=== PATIENT | female | born 1995 | race Caucasian/White ===

== ENCOUNTER 2016-04-29 09:14 | Emergency (ER) | payer OTHER ==
[2016-04-29] MEDS ORDERED: Ibuprofen TAB* 400 MG PO ONE (10:23)
--- NOTE | 2016-04-29 10:29 | UC ---
Throat Pain/Nasal Mohan HPI - HPI Summary HPI Summary: complaint of having fever and chills for the last 36-48 hours last night fever increased vomited 1x last night with phlegm, denies diarrhea feels achy in entire body intermittent headache taking ibuporofen with minimal relief last dose yesterday 5PM no difficulty drinking fluids - History of Current Complaint Chief Complaint: UCGeneralIllness Stated Complaint: CHILLS,ACHY,STOMACH Time Seen by Provider: 04/29/16 10:15 Hx Obtained From: Patient Hx Last Menstrual Period: 04/17/16 - Allergies/Home Medications Allergies/Adverse Reactions: Allergies Allergy/AdvReac Type Severity Reaction Status Date / Time seasonal Allergy Congestion Uncoded 04/29/16 10:13 Home Medications: Home Medications Ibuprofen TAB* [Advil TAB*] 400 mg PO Q8H PRN 04/29/16 [History Confirmed ] PMH/Surg Hx/FS Hx/Imm Hx Previously Healthy: Yes - Surgical History Surgical History: Yes Surgery Procedure, Year, and Place: cyst on forehead 2013, wisdom teeth 2013, right hip labrum repair 2010 - Family History Known Family History: Positive: Cardiac Disease, Hypertension - maternal grandmother with DM, HTN CAD, Diabetes - Social History Occupation: Student Alcohol Use: Occasionally Substance Use Type: None Smoking Status (MU): Never Smoked Tobacco Review of Systems Constitutional: Fever, Chills, Fatigue Skin: Negative Eyes: Negative ENT: Negative Respiratory: Cough Cardiovascular: Negative Gastrointestinal: Negative Genitourinary: Negative Motor: Negative Neurovascular: Negative Musculoskeletal: Negative Neurological: Negative Psychological: Negative All Other Systems Reviewed And Are Negative: Yes Physical Exam Triage Information Reviewed: Yes Appearance: Well-Nourished, Ill-Appearing Vital Signs: Initial Vital Signs Temp 101.6 F 04/29/16 10:06 Pulse 121 04/29/16 10:06 Resp 18 04/29/16 10:06 BP 111/62 04/29/16 10:06 Pulse Ox 98 04/29/16 10:06 Vital Signs Reviewed: Yes Eyes: Positive: Conjunctiva Clear ENT: Positive: Pharyngeal erythema, TMs normal. Negative: Nasal congestion, Tonsillar swelling, Tonsillar exudate Neck: Positive: No Lymphadenopathy Respiratory: Positive: Lungs clear, Normal breath sounds, No respiratory distress Cardiovascular: Positive: No Murmur, Pulses Normal, Tachycardia Abdomen Description: Positive: Nontender, No Organomegaly, Soft. Negative: CVA Tenderness (R), CVA Tenderness (L) Bowel Sounds: Positive: Present Musculoskeletal: Positive: No Edema Neurological: Positive: Alert Psychological Exam: Normal Skin Exam: Normal Throat Pain/Nasal Course/Dx - Course Course Of Treatment: exam completed. will start tamiflu for influenza- pt refuses influenza testing - Differential Dx/Diagnosis Differential Diagnosis/HQI/PQRI: Influenza, Otitis Media, Tonsillitis, URI Provider Diagnoses: viral syndrome Discharge - Discharge Plan Condition: Stable Disposition: HOME Prescriptions: Oseltamivir CAP* [Tamiflu CAP*] 75 mg PO BID #10 cap Patient Education Materials: Influenza (ED) Forms: *School Release Referrals: Non Staff,Doctor [Primary Care Provider] - [facility] [place] [facility] [Outside] Additional Instructions: Please take tamiflu as directed. Increase fluids and rest Take acetaminophen for fever or pain Please review your discharge instructions. . If your symptoms do not improve please call your primary care provider or return to urgent care
[2016-04-29 10:35] VITALS: BP 111/62
== END 2016-04-29 10:54 | disposition home or self-care (01) ==
LOC: UCCORT 09:14
DX: B34.9 Viral infection, unspecified (principal)
CPT/HCPCS: 99212; A9270-GY; G0463